=== PATIENT | female | born 1970 | race African-American/Black ===

== ENCOUNTER 2017-04-24 10:25 | Emergency (ER) | payer BC ==
[~2017-04-24] VITALS: Ht 162.6 cm; Wt 81.6 kg
--- NOTE | ~2017-04-24 | CR151 ---
[facility] A Service of [facility] RADIOLOGY TEXT RESULTS PATIENT: LUCIE GARNICA LOCATION: [place] : [birth year] UNIT #: [id number] AGE: [address]: Alem Blanca APRN SEX: F ORDER DR: [id number] [facility] [address] [place], [place] [address] [id number] E MR#: [id number] Acc #: [id number] NAME: LUCIE GARNICA : 1970 SEX: F STUDY DATE/TIME: 04/24/2017 10:58 UNIT: [facility] ROOM: STUDY DESCRIPTION: CR Hip Min 2 Views Rt Attending Physician: Alem Blanca A.P.R.N. Ordering Physician: Ed Dash Garzon M.D. Primary Care Physician[facility] REPORT This report is preliminary unless electronic signature is present EXAM Right hip series, 04/24/2017. HISTORY Trauma. Patient states her right knee popped and then it gave out. She fell, hit her knee and right hip, twisted her right ankle. FINDINGS AP radiograph of the pelvis is presented with a frogleg view right hip. No traumatic fracture or malalignment. Nszl-wc-sgkqedmk narrowing bilateral hip joints. Bilateral proximal femurs intact. Periarticular soft tissues unremarkable. Prior tubal ligation. Visualized bowel gas pattern normal. Calcified phleboliths right hemipelvis. Dictated by... Mirza Olson M.D. THIS IS AN ELECTRONICALLY VERIFIED REPORT Mirza Olson M.D. at 04/26/2017 2:47 PM NOELLE/tatiana TD: 04/24/2017 15:12 JOB #: [id number] MEDICAL IMAGING REPORT Page 1 of 1 COPY
--- NOTE | ~2017-04-24 | CR173 ---
[facility] A Service of [facility] & [facility] RADIOLOGY TEXT RESULTS PATIENT: LUCIE GARNICA LOCATION: [facility] : [birth year] UNIT #: [id number] AGE: [address]: Alem Blanca APRN SEX: F ORDER DR: [id number] [facility] [address] [place], [place] [address] [id number] E MR#: [id number] Acc #: [id number] NAME: LUCIE GARNICA : 1970 SEX: F STUDY DATE/TIME: 04/24/2017 10:58 UNIT: [facility] ROOM: STUDY DESCRIPTION: CR Knee 3 Views Rt Attending Physician: Alem Blanca A.P.R.N. Ordering Physician: Ed Dash Garzon M.D. Primary Care Physician: [facility], [facility] REPORT This report is preliminary unless electronic signature is present EXAM Right knee series. HISTORY States her right knee popped and then it "gave out". She fell, hit her knee and right hip. Twisted her right ankle this a.m. FINDINGS AP, lateral, and sunrise views, right knee, show no traumatic fracture or malalignment. Joint spaces normal. No traumatic-appearing soft tissue abnormality. No joint effusion. Dictated by... Mirza Olson M.D. THIS IS AN ELECTRONICALLY VERIFIED REPORT Mirza Olson M.D. at 04/26/2017 2:47 PM NOELLE/ramona TD: 04/24/2017 15:57 JOB #: [id number] MEDICAL IMAGING REPORT Page 1 of 1 COPY
--- NOTE | ~2017-04-24 | CR21 ---
[facility] A Service of [facility] & [facility] RADIOLOGY TEXT RESULTS PATIENT: LUCIE GARNICA LOCATION: [facility] : [birth year] UNIT #: [id number] AGE: [address]: Alem Blanca APRN SEX: F ORDER DR: [id number] [facility] [address] [place], [place] [address] [id number] E MR#: [id number] Acc #: [id number] NAME: LUCIE GARNICA : 1970 SEX: F STUDY DATE/TIME: 04/24/2017 10:57 UNIT: [facility] ROOM: STUDY DESCRIPTION: CR Ankle Min 3 Views Rt Attending Physician: Alem Blanca A.P.R.N. Ordering Physician: Ed Doctor [id number] [facility] Primary Care Physician: [facility], [facility] REPORT This report is preliminary unless electronic signature is present EXAM Right ankle series, 04/24/2017 HISTORY Trauma. Patient states her right knee popped and then it gave out. She fell hit her knee and right hip, twisted her right ankle this a.m. FINDINGS AP, lateral and oblique radiographs of the right ankle are presented. No traumatic fracture or malalignment. Plantar calcaneal spur. Ankle mortise joint intact. No soft tissue defect, subcutaneous air or radiodense foreign body. Dictated by... Mirza Olson M.D. THIS IS AN ELECTRONICALLY VERIFIED REPORT Mirza Olson M.D. at 04/26/2017 2:47 PM Niranjan TD: 04/24/2017 15:00 JOB #: [id number] MEDICAL IMAGING REPORT Page 1 of 1 COPY
[~2017-04-24 10:25] MED LIST: ALTOPREV40 MG PO; AMARYL; AMITRYPTYLINE PO; ANTIVERT PO; ASPIRIN ENTERI325 M1 PO; ASPIRIN PO; ASPIRIN325 M1 PO; ASPIRIN81 M1 PO; ASPIRIN81 M2 PO; ASPIRIN81 MG PO; AZOR 5-20 MG T1 EACH PO; DOXYCYCLINE PO; ELIQUIS5 MG PO; FLEXERIL PO; FLEXERIL10 M1 PO; GLIPIZIDE10 MG PO; GLUCOPHAGE500 M1 PO; GLUCOTROL PO; HYDROCHLOROTH12.5 MG PO; IBUPROFEN PO; IBUPROFEN800 MG PO; IMDUR PO; KEFLEX PO; LANTUS100 U/ML SUBQ; LIPITOR20 MG PO; LISINOPRIL10 MG PO; LOPRESSOR PO; LORTAB 5/500 TA1 TA1 PO; LOSARTAN POTASS25 MG PO; MACROBID100 MG PO; METFORMIN HCL500 M1 PO; METOPROLOL TAR25 MG PO; METOPROLOL TART25 MG PO; NAPROSYN500 MG PO; NITROGYLCERIN SUBLINGUAL; OMEPRAZOLE20 M1 PO; PRILOSEC PO; PYRIDIUM PO; ROBITUSSIN100 MG/52 PO; SOTALOL AF80 M1 PO; ULTRAM PO; VOLTAREN75 MG PO; ZOCOR10 MG PO; ZOCOR20 MG PO
== END 2017-04-24 12:44 | disposition home or self-care (01) ==
LOC: CFTX 10:25 → CED 10:25 → CFTX 11:47
DX: S93.411A Sprain of calcaneofibular ligament of right ankle, initial encounter (principal); S83.91XA Sprain of unspecified site of right knee, initial encounter; S70.01XA Contusion of right hip, initial encounter; K21.9 Gastro-esophageal reflux disease without esophagitis; I10 Essential (primary) hypertension; X50.1XXA Overexertion from prolonged static or awkward postures, initial encounter; Y92.9 Unspecified place or not applicable
CPT/HCPCS: 29540; 73502; 73562; 73610; 99283